=== PATIENT | female | born 1970 | race Caucasian/White ===

== ENCOUNTER 2021-07-18 18:38 | Emergency (ER) | payer OTHER ==
[2021-07-18] MEDS ORDERED: diphenhydrAMINE 50 MG/ML INJ (BENADRYL) IVP STA ×2 (19:06→20:38)
[2021-07-18] MEDS ORDERED: METOCLOPRAMIDE INJ 10 MG/2 ML (REGLAN) IVP STA (19:06)
[2021-07-18] MEDS ORDERED: NS IV 1000 ML 1,000 ML IV STA (19:06)
[2021-07-18] MEDS ORDERED: KETOROLAC 30 MG/ML VIAL IVP STA (19:06)
[2021-07-18 19:15] LABS: BASOPHILS # (AUTO) 0.1 10^3/uL (0.0-0.1); BASOPHILS % (AUTO) 1 % (0-10); EOSINOPHILS # (AUTO) 0.1 10^3/uL (0.0-0.3); EOSINOPHILS % (AUTO) 2 % (0-10); HEMATOCRIT 41 % (35-52); LYMPHOCYTES # (AUTO) 1.4 X 10^3 (1.0-4.0); LYMPHOCYTES % (AUTO) 18 % (12-44); MEAN CORPUSCULAR HEMOGLOBIN 35 pg (25-34); MEAN CORPUSCULAR HGB CONC 34 g/dL (32-36); MEAN CORPUSCULAR VOLUME 102 fL (80-99); MEAN PLATELET VOLUME 10.2 fL (9.0-12.2); MONOCYTES # (AUTO) 0.6 X 10^3 (0.0-1.0); MONOCYTES % (AUTO) 8 % (0-12); NEUTROPHILS # (AUTO) 5.6 X 10^3 (1.8-7.8); NEUTROPHILS % (AUTO) 72 % (42-75); PLATELET COUNT 249 10^3/uL (130-400); WHITE BLOOD COUNT 7.8 10^3/uL (4.3-11.0)
--- NOTE | 2021-07-18 19:20 | ED Headache ---
General Chief Complaint: Head/Cervical Problems Stated Complaint: HEADACHE Nursing Triage Note: Pt complaining of a headache that started around 1630. Pt states she is nauseated and does not normally get headaches. Source: patient History of Present Illness Date Seen by Provider: Jul 18, 2021 Time Seen by Provider: 18:48 Initial Comments 50 yo female presenting with complaints of severe headache that started suddenly around 1630 as she was driving to [place] from [place]. She was about half way when she felt like she needed to use the bathroom and was starting to have a headache. She had diarrhea when she went to the bathroom and had nausea but no vomiting. She felt like she might pass out and was barely able to make it back to her car. She had other people that were travelling with her and were not far behind her car so when she called them they came to her and drove her here to [facility] to come to the stand alone ED here. She denies having had a headache like this before and denies any head trauma or injury. 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 She does have dizziness with looking around and that is new for her this evening as well. She states they have not done any imaging of her head or orbits. Timing/Duration: 1-3 hours Severity/Quality: severe Location: frontal (started behind her eyes and has moved back across her head to her neck) Prior Headaches/Recent Trauma: no recent headache/trauma Modifying Factors: worse with exposure to light, worse with movement Associated Symptoms: No confusion, No fatigue, No facial pain, No fever/chills, No flushing, No loss of consciousness; nausea/vomiting (nausea but no vomiting); No nasal congestion, No nasal drainage, No numbness in legs/feet, No rash, No seizures, No sinus infection, No stiff neck, No vision changes, No weakness Allergies and Home Medications Allergies Coded Allergies: No Known Drug Allergies (Unverified , 07/18/21) Patient Home Medication List Home Medication List Reviewed: Yes Review of Systems Review of Systems Constitutional: No chills; dizziness (with eye movement); No fever Eyes: Blurred Vision (chronic and no worse than usual from her thyroid issues); Denies Drainage, Denies Foreign Body Sensation, Denies Inflammation; Photophobia; Denies Tunnel Vision Ears, Nose, Mouth, Throat: denies ear pain, denies ear discharge, denies nose pain, denies nose discharge, denies epistaxis, denies mouth pain Respiratory: no symptoms reported Cardiovascular: no symptoms reported Gastrointestinal: see HPI Genitourinary: no symptoms reported Musculoskeletal: no symptoms reported Skin: no symptoms reported Psychiatric/Neurological: See HPI, Headache; Denies Numbness, Denies Paresthesia Past [id number]-Yzcvyi Hx Patient Social History Tobacco Use?: Yes Tobacco type used: Cigarettes Smoking Status: Current Everyday Smoker Use of E-Cig and/or Vaping dev: No Substance use?: No Alcohol Use?: No Pt feels they are or have been: No Physical Exam Vital Signs Vital Signs - First Documented 07/18/21 18:40 Temp 36.5 Pulse 67 Resp 18 B/P (MAP) 159/91 (113) Pulse Ox 100 O2 Delivery Room Air Capillary Refill : Less Than 3 Seconds Height, Weight, BMI Height: '" Weight: lbs. oz. kg; BMI Method: General Appearance: WD/WN, mild distress HEENT: TMs normal, pharynx normal, photophobia, other (proptosis/exopthalmos right eye more than left. dizziness with patient trying to do EOM) Neck: non-tender, full range of motion, supple, normal inspection Cardiovascular: normal peripheral pulses, regular rate, rhythm Respiratory: chest non-tender, lungs clear, normal breath sounds, no respiratory distress, no accessory muscle use Gastrointestinal: normal bowel sounds, soft Extremities: normal range of motion, non-tender, normal capillary refill Psychiatric: alert, oriented x 3 Crainal Nerves: normal hearing, normal speech, PERRL, other (exopthalmos and proptosis right eye more than left) Coordination/Gait: normal gait Motor/Sensory: no motor deficit, no sensory deficit Skin: normal color, warm/dry Progress/Results/Core Measures Results/Orders Lab Results Laboratory Tests Test 07/18/21 19:10 Range/Units White Blood Count 7.8 4.3-11.0 10^3/uL Red Blood Count 4.02 3.80-5.11 10^6/uL Hemoglobin 14.0 11.5-16.0 g/dL Hematocrit 41 35-52 % Mean Corpuscular Volume 102 H 80-99 fL Mean Corpuscular Hemoglobin 35 H 25-34 pg Mean Corpuscular Hemoglobin Concent 34 32-36 g/dL Red Cell Distribution Width 12.6 10.0-14.5 % Platelet Count 249 130-400 10^3/uL Mean Platelet Volume 10.2 9.0-12.2 fL Immature Granulocyte % (Auto) 0 % Neutrophils (%) (Auto) 72 42-75 % Lymphocytes (%) (Auto) 18 12-44 % Monocytes (%) (Auto) 8 0-12 % Eosinophils (%) (Auto) 2 0-10 % Basophils (%) (Auto) 1 0-10 % Neutrophils # (Auto) 5.6 1.8-7.8 X 10^3 Lymphocytes # (Auto) 1.4 1.0-4.0 X 10^3 Monocytes # (Auto) 0.6 0.0-1.0 X 10^3 Eosinophils # (Auto) 0.1 0.0-0.3 10^3/uL Basophils # (Auto) 0.1 0.0-0.1 10^3/uL Immature Granulocyte # (Auto) 0.0 0.0-0.1 10^3/uL Sodium Level 140 135-145 MMOL/L Potassium Level 4.2 3.6-5.0 MMOL/L Chloride Level 103 98-107 MMOL/L Carbon Dioxide Level 25 21-32 MMOL/L Anion Gap 12 5-14 MMOL/L Blood Urea Nitrogen 19 H 7-18 MG/DL Creatinine 0.91 0.60-1.30 MG/DL Estimat Glomerular Filtration Rate 66 BUN/Creatinine Ratio 21 Glucose Level 114 H 70-105 MG/DL Calcium Level 10.2 H 8.5-10.1 MG/DL Corrected Calcium 8.5-10.1 MG/DL Total Bilirubin 0.4 0.1-1.0 MG/DL Aspartate Amino Transf (AST/SGOT) 17 5-34 U/L Alanine Aminotransferase (ALT/SGPT) 15 0-55 U/L Alkaline Phosphatase 57 40-136 U/L Total Protein 7.6 6.4-8.2 GM/DL Albumin 4.9 H 3.2-4.5 GM/DL Lipase 66 8-78 U/L My Orders Orders - RAFAELA OSEGUERA MD Comprehensive Metabolic Panel (07/18/21 19:05) Lipase (07/18/21 19:05) Ed Iv/Invasive Line Start (07/18/21 19:05) Cbc With Automated Diff (07/18/21 19:05) Ct Head/Maxillofacial Wo (07/18/21 19:05) Ns Iv 1000 Ml (Sodium Chloride 0.9%) (07/18/21 19:06) Ketorolac Injection (Toradol Injection) (07/18/21 19:06) Metoclopramide Injection (Reglan Injecti (07/18/21 19:06) Diphenhydramine Injection (Benadryl Inje (07/18/21 19:06) Fentanyl Inj (Sublimaze Injection) (07/18/21 20:38) Diphenhydramine Injection (Benadryl Inje (07/18/21 20:38) Vital Signs/I&O 07/18/21 18:40 Temp 36.5 Pulse 67 Resp 18 B/P (MAP) 159/91 (113) Pulse Ox 100 O2 Delivery Room Air Blood Pressure Mean: 113 Progress Progress Note #1: Progress Note obtain CT head and maxillofacial. check basic labs. Give IVF with toradol, reglan and benadryl for a Migraine/severe headache cocktail. Differential diagnosis includes brain tumor, intracrainal hemorrhage, pituitary tumor, electrolyte imbalance, infection Progress Note #2: Time: 19:44 Progress Note Labs appear stable without acute significant abnormality. Pt has not given a Urine sample yet. She reports no change in her symptoms with treatment but appears to be resting more comfortably Progress Note #3: Time: 20:[address] head and maxillofacial scan shows no acute process to account for her complaint of head, retro-orbital pain, jaw and neck pain. Will review results with pt and friend in room. Can try giving a steroid and a narcotic pain medicine to see if that helps more with her symptoms. If she continues to have worsening symptoms than she may need to be seen where neurology and MRI facilities are available. She may also need endocrinology with her underlying thyroid problems. 2033 Pt reassured that no severe findings on testing. Was willing to try a small dose of narcotic with benadryl but refused steroid. Counseled that if worsens or not improving to return or seek medical care for further evaluation but hopefully with rest it will go away. Diagnostic Imaging Diagonstic Imaging: CT Plain Films/CT/US/NM/MRI: facial bones, head Comments NAME: SANTOS DARBY [facility] REC#: [id number] PT STATUS: REG ER : 1970 PHYSICIAN: RAFAELA OSEGUERA MD ADMIT DATE: 07/18/21/ER FS Draft Date of Exam:07/18/21 CT HEAD/MAXILLOFACIAL WO PROCEDURE: CT head and maxillofacial without contrast. TECHNIQUE: Multiple contiguous axial images were obtained through the head and facial bones without the use of intravenous contrast. Auto Exposure Controls were utilized during the CT exam to meet ALARA standards for radiation dose reduction. INDICATION: Severe headache, exophthalmos, nausea, dizziness. COMPARISON: 10/28/2012. FINDINGS: CT HEAD: No acute intracranial hemorrhage is seen. The ventricles and cortical sulci are age-appropriate. There is no midline shift or mass effect. The calvarium appears intact. CT FACE: The pterygoid plates are intact. The zygomatic arches are intact. The mandible appears intact and normal in alignment. There is significant dental hardware causing streak artifact. The paranasal sinuses are clear. Mastoid air cells are clear. The orbits demonstrate no mass or fluid collection. The globes are intact. The extraocular musculature appears symmetric and normal. No surrounding edema is seen. IMPRESSION: 1. No acute intracranial hemorrhage or CT evidence of acute territorial ischemia. 2. No acute abnormality is seen in the face. Dictated on workstation # [id number] Dict: 07/18/21 194 Trans: 07/18/212010 [facility] [id number] Interpreted by: GUANACO DONOVAN MD Electronically signed by: Reviewed: Reviewed by Me Departure Impression Primary Impression: Retro-ocular headache Additional Impression: Diarrhea Qualified Codes: R19.7 - Diarrhea, unspecified Disposition: HOME, SELF-CARE Condition: Stable Departure-Patient Inst. Decision time for Depature: 20:36 Referrals: NO,LOCAL PHYSICIAN (PCP/Family) Primary Care Physician Patient Instructions: Diarrhea, Adult ED, Headache, Adult ED, Home Headache Remedies Add. Discharge Instructions: Try resting in cool dark room Try to stay hydrated and get plenty of rest. If continued or worsening symptoms then you may need to have repeat evaluation or further testing with a neurologist or MRI to look further into your headache and symptoms. All discharge instructions reviewed with patient and/or family. Voiced understanding. RAFAELA OSEGUERA MD Jul 18, 2021 19:20
[2021-07-18 19:31] LABS: SODIUM 140 MMOL/L (135-145)
[2021-07-18 19:32] LABS: ALANINE AMINOTRANSFERASE 15 U/L (0-55); ALBUMIN 4.9 GM/DL (3.2-4.5); ALKALINE PHOSPHATASE 57 U/L (40-136); BILIRUBIN,TOTAL 0.4 MG/DL (0.1-1.0); BUN/CREATININE RATIO 21; CALCIUM 10.2 MG/DL (8.5-10.1); CARBON DIOXIDE 25 MMOL/L (21-32); CHLORIDE 103 MMOL/L (98-107); CREATININE SERUM 0.91 MG/DL (0.60-1.30); GFR ESTIMATED 66; GLUCOSE 114 MG/DL (70-105); LIPASE 66 U/L (8-78); POTASSIUM 4.2 MMOL/L (3.6-5.0); TOTAL PROTEIN 7.6 GM/DL (6.4-8.2)
--- NOTE | 2021-07-18 20:13 | Diagnostic Imaging Report ---
PROCEDURE: CT head and maxillofacial without contrast. TECHNIQUE: Multiple contiguous axial images were obtained through the head and facial bones without the use of intravenous contrast. Auto Exposure Controls were utilized during the CT exam to meet ALARA standards for radiation dose reduction. INDICATION: Severe headache, exophthalmos, nausea, dizziness. COMPARISON: 10/28/2012. FINDINGS: CT HEAD: No acute intracranial hemorrhage is seen. The ventricles and cortical sulci are age-appropriate. There is no midline shift or mass effect. The calvarium appears intact. CT FACE: The pterygoid plates are intact. The zygomatic arches are intact. The mandible appears intact and normal in alignment. There is significant dental hardware causing streak artifact. The paranasal sinuses are clear. Mastoid air cells are clear. The orbits demonstrate no mass or fluid collection. The globes are intact. The extraocular musculature appears symmetric and normal. No surrounding edema is seen. IMPRESSION: 1. No acute intracranial hemorrhage or CT evidence of acute territorial ischemia. 2. No acute abnormality is seen in the face. Dictated by: Dictated on workstation # [id number]
[2021-07-18] MEDS ORDERED: fentaNYL INJ 100 MCG/2 ML AMP IVP STA (20:38)
[2021-07-18 21:01] VITALS: BP 119/74
== END 2021-07-18 21:01 | disposition home or self-care (01) ==
LOC: ER FS 18:40
DX: G44.89 Other headache syndrome (principal); R19.7 Diarrhea, unspecified; F17.210 Nicotine dependence, cigarettes, uncomplicated
CPT/HCPCS: 36415; 70450; 70486; 80053; 83690; 85025